=== PATIENT | female | born 1955 | race Caucasian/White ===

== ENCOUNTER → 2018-10-12 | Outpatient (REF) ==
[~2018-10-12] MED LIST: CALCIUM 600 PLU1 TAB PO; LEXAPRO20 MG PO; MICARDIS40 MG PO; PERCOCET 325 MG1 TA2 PO; PREDNISONE10 MG PO; PRINZIDE 12.5 M1 TAB PO; TOPROL XL100 MG PO; TRIAMCINOLONE0.1% TP; VALIUM 5MG T5 MG/TAB PO; VITAMIN D31000 I1 PO; ZITHROMAX 250M250 MG PO; ZOCOR 40MG40 MG PO
[2018-10-12 17:27] LABS: THYROID STIMULATING HORMONE 1.88 uIU/mL (0.465-4.680)
== END ==
LOC: ZLAB.WCH 16:18
PROVIDERS: Physician Assistant
DX: Z01.89 Encounter for other specified special examinations (principal)

== ENCOUNTER → 2018-11-22 | Outpatient (REF) | LOC: ZLAB.WCH 10:01 | DX: Z01.89 Encounter for other specified special examinations (principal) ==

== ENCOUNTER 2020-08-25 08:16 | Day surgery (SDC) | payer MEDICARE ==
[~2020-08-25] VITALS: Ht 154.9 cm; Wt 80.7 kg
[2020-08-25] MEDS ORDERED: MIRAPEX 0.0.125 MG/T PO (08:32)
[2020-08-25 08:59] VITALS: BP 134/84; PULSE 61; TEMP 97.7
--- NOTE | 2020-08-25 09:14 | NUR ---
Patient goes to her procedure at this time with Alaina Huston RN.
[2020-08-25] MEDS ORDERED: PROTONIX 40MG T40 MG PO (09:49)
[2020-08-25 09:50] VITALS: BP 100/66; PULSE 60; TEMP 98.6
--- NOTE | 2020-08-25 09:50 | NUR ---
TO BAY 2 PER CART FROM ENDOSCOPY. ALERT AND TALKING WITH STAFF. AMBULATED TO RECLINER WITH 2 ASSIST.
[2020-08-25 10:05] VITALS: BP 99/65; PULSE 58
--- NOTE | 2020-08-25 10:05 | NUR ---
RECEIVED APPLE JUICE AND OLIVIA PUDDING.
[2020-08-25 10:30] VITALS: BP 116/52; PULSE 60
--- NOTE | 2020-08-25 10:46 | NUR ---
DR SOLOMON INTO TALK WITH PATIENT
--- NOTE | 2020-08-25 10:53 | NUR ---
RECEIVED DISCHARGE INSTRUCTIONS AND VERBALIZED UNDERSTANDING. PATIENT CALLED FOR RIDE HOME.
--- NOTE | 2020-08-25 11:19 | NUR ---
DISCHARGED PER WC BY NURSING STAFF TO PRIVATE CAR IN CARE OF CHITRA.
== END 2020-08-25 11:19 | disposition home or self-care (01) ==
LOC: SDCO 08:16
DX: K26.7 Chronic duodenal ulcer without hemorrhage or perforation (principal); K22.2 Esophageal obstruction; K21.9 Gastro-esophageal reflux disease without esophagitis; Z88.8 Allergy status to other drugs, medicaments and biological substances; Z85.3 Personal history of malignant neoplasm of breast; I10 Essential (primary) hypertension; G25.81 Restless legs syndrome; Z90.710 Acquired absence of both cervix and uterus; Z90.49 Acquired absence of other specified parts of digestive tract; Z88.5 Allergy status to narcotic agent; G43.909 Migraine, unspecified, not intractable, without status migrainosus
CPT/HCPCS: J2704; J7030

== ENCOUNTER 2020-10-06 07:16 | Day surgery (SDC) | payer MEDICARE ==
[~2020-10-06] VITALS: Ht 156.2 cm; Wt 82.1 kg
[~2020-10-06 07:16] MED LIST changes: +MIRAPEX 0.0.125 MG/T PO; +PROTONIX 40MG T40 MG PO
[2020-10-06 07:29] VITALS: BP 154/90; PULSE 57; TEMP 98.8
[2020-10-06 09:09] VITALS: BP 98/58; PULSE 56; TEMP 97.7
--- NOTE | 2020-10-06 09:09 | NUR ---
Pt to GI bay 6 via cart from [facility]. Pt drowsy, but awakens easily. Pt ambulates to recliner with stand by assistance. Pt wanting to sleep. Warm blankets given. Will continue to monitor. Call light within reach.
[2020-10-06 09:25] VITALS: BP 116/74; PULSE 52
--- NOTE | 2020-10-06 09:25 | NUR ---
pt sleeping. Respirations even and unlabored. Call light within reach.
[2020-10-06 09:27] VITALS: TEMP 97.7
[2020-10-06 09:40] VITALS: BP 129/79; PULSE 54
--- NOTE | 2020-10-06 09:40 | NUR ---
Pt continues to rest. Denies needs. Call light within reach.
[2020-10-06 09:55] VITALS: BP 139/73; PULSE 94
--- NOTE | 2020-10-06 09:55 | NUR ---
Applesauce and water given. Will continue to monitor. Call light within reach. Will continue to monitor.
--- NOTE | 2020-10-06 10:10 | NUR ---
IV site discontinued with all parts intact. Discharge instructions reviewed. Pt voices understanding. Pt up to dress. Call light within reach.
--- NOTE | 2020-10-06 10:25 | NUR ---
Pt escorted to private car via wheel chair. Pt accompanied home by her .
== END 2020-10-06 10:25 | disposition home or self-care (01) ==
LOC: SDCO 07:16
DX: K22.2 Esophageal obstruction (principal); I10 Essential (primary) hypertension; G25.81 Restless legs syndrome; K21.9 Gastro-esophageal reflux disease without esophagitis; K26.3 Acute duodenal ulcer without hemorrhage or perforation; E78.5 Hyperlipidemia, unspecified; Z85.3 Personal history of malignant neoplasm of breast; Z87.11 Personal history of peptic ulcer disease; Z88.8 Allergy status to other drugs, medicaments and biological substances
CPT/HCPCS: C1726; J2704; J7030